=== PATIENT | female | born 1990 | race Caucasian/White ===

== ENCOUNTER → 2016-09-21 | Outpatient (CLI) | payer OTHER ==
--- NOTE | 2016-09-21 19:39 | CPEEG ---
[f rep st] ELECTROENCEPHALOGRAM DATE OF STUDY: 09/21/2016 DATE OF INTERPRETATION: 09/21/2016. INTERPRETATION: Normal EEG during wakefulness and sleep. There were no potentially epileptogenic abnormalities present during the recording. REPORT: This EEG contains 10-11 hertz alpha activity over the posterior head regions. There was no abnormal activation at rest, during photic stimulation or hyperventilation. The patient became drowsy and fell asleep during the study. There was no abnormal activation during drowsiness, sleep, or during times of arousal. /[id number]/MODL MTDD
== END ==
LOC: FCPNEURO 12:50
PROVIDERS: ATTEND Physician Assistant Medical
DX: Z13.89 Encounter for screening for other disorder (principal)

== ENCOUNTER → 2016-09-23 | Outpatient (CLI) | payer OTHER ==
--- NOTE | 2016-09-23 17:44 | MR ---
MRI of the Brain (Without Contrast) at 1652 hours Clinical Indications: R 40.20, loss of consciousness, possible seizures Technique: T1-weighted images were acquired axially and sagittally from the foramen magnum to the ve rtex. Axial fast inversion recovery, fast T2-weighted, and diffusion-weighted axial images were obta ined without contrast. Additional coronal FLAIR series. Findings: The ventricles, cisterns, and sulci are normal without atrophy, hydrocephalus, midline andrew ft, herniation, or epidural/subdural hematomas. No intracranial hemorrhage or masses. Diffusion-weigh yashira sequence demonstrates no acute infarct. Cerebellar tonsils are in normal position. Pituitary glan d is normal in size. Normal signal flow-void in the superior sagittal sinus, basilar artery, and bila teral internal carotid arteries indicating patency. Paranasal sinuses and mastoid air cells are clear . Coronal FLAIR series demonstrates no definite evidence of mesial temporal sclerosis. No congenital structural abnormalities noted. Impression: Normal MRI of the brain without contrast.
== END ==
LOC: FIMAGING 16:19
PROVIDERS: ATTEND Physician Assistant Medical
DX: R40.20 Unspecified coma (principal)